=== PATIENT | female | born 1980 | race Two or more races ===

== ENCOUNTER 2018-01-19 21:03 | Emergency (ER) | payer SELFPAY | END 2018-01-19 22:04 | disposition home or self-care (01) | LOC: ER 22:04 | DX: S80.861A Insect bite (nonvenomous), right lower leg, initial encounter (principal); W57.XXXA Bitten or stung by nonvenomous insect and other nonvenomous arthropods, initial encounter; Y93.89 Activity, other specified; Y92.89 Other specified places as the place of occurrence of the external cause; Y99.8 Other external cause status | CPT/HCPCS: 99281 ==